=== PATIENT | female | born 1935 | race Caucasian/White ===

== ENCOUNTER 2016-05-05 00:22 | Inpatient (IN) | payer OTHER ==
[2016-05-05] VITALS (7 sets, daily range): BP systolic 97–153; BP diastolic 60–90; PULSE 54–114; TEMP 36.2–36.7; O2SAT 92–96; Ht 139.7 cm; Wt 61.0 kg
[~2016-05-05] VITALS: Ht 139.7 cm; Wt 61.0 kg
[~2016-05-05 00:22] MED LIST: ACET-1256 PO; AMLO5TAB2 PO; CALC1CHW PO; CLC100X PO; LIDO16CR TOP; LINICRE TOP; LSN20 PO; METO1TAB66 PO; MULTCHW; NUTR-977 PO; PANT40TA PO; ULT50X PO
[2016-05-05] MEDS ORDERED: METOPROLOL TARTRATE 1 MG/ML VIAL IV STA ×2 (00:30→01:06)
--- NOTE | 2016-05-05 00:36 | EMERGENCY ROOM VISIT NOTE ---
History Report prepared by Lebron: Penny Wilson Under the Supervision of: Dr. Miguel Viveros M.D. First contact with patient: 00:25 Chief Complaint: CARDIAC ASSESSMENT Stated Complaint: CARDIAC ASSESSMENT/DIZZINESS History of Present Illness The patient is an 81 year old female who presents to the Emergency Room with complaints of persistent atrial fibrillation that began prior to arrival. The patient states that she has a history of atrial fibrillation, noting that the last time she was in atrial fibrillation was 3 1/2 years ago. She notes that this evening she felt herself go into atrial fibrillation. The patient associates intermittent chest pain with her symptoms today. She notes that she is on Metoprolol daily, but denies being on any blood thinners or aspirin daily. The patient states that she takes Tylenol daily and denies any new medications. She additionally notes that she has intermittently had swelling in her feet. The patient denies any recent hospitalizations or recent falls. Source of History: patient Onset: prior to arrival Position: other (global) Quality: other (atrial fibrillation) Timing: other (persistent) Associated Symptoms: + chest pain (intermittent) Note: Associated Symptoms intermittent swelling in feet. Review of Systems See HPI for pertinent positives & negatives. A total of 10 systems reviewed and were otherwise negative. Past Medical & Surgical Medical Problems: (1) Ambulatory dysfunction (2) Autoimmune deficiency (3) Benign hypertension (4) C. 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 Family History No pertinent family history Social History Smoking Status: Never Smoker Alcohol Use: none Drug Use: none Marital Status: Housing Status: half-way Occupation Status: retired Current/Historical Medications Scheduled Acetaminophen (Tylenol), 500 MG PO TID Amlodipine Besylate (Norvasc), 10 MG PO DAILY Calcium Carbonate-Vitamin D (Caltrate 600+D), 1 TAB PO BID Enteral Nutrition Formula (Ensure Plus Vanilla), 1 CAN PO UD Lisinopril (Lisinopril), 20 MG PO BID Menthol-Methyl Salicylate (Gloria (Bengay Greaseless), 1 APPLN TOP UD Metoprolol Succinate (Toprol Xl), 50 MG PO HS Multiple Vitamins W/ Minerals (Therems M), 1 TAB PO DAILY Pantoprazole (Protonix), 40 MG PO QPM Scheduled PRN Acetaminophen (Tylenol), 500 MG PO Q4H PRN for Pain Bisacodyl (Dulcolax), 1 SUPP [place] DAILY PRN for NO BOWEL MOVEMENT X 2 DAYS Docusate Sodium (Colace), 100 MG PO BID PRN for Constipation Lactulose (Chronulac), 30 ML PO DAILY PRN for NO BOWEL MOVEMENT X 1 DAY. Menthol (Topical Analgesic) (Bengay Ultra Strength), 1 PATCH TD BID PRN for Pain Tramadol HCl (Tramadol HCl), 50 MG PO TID PRN for Pain Allergies Coded Allergies: Sulfa Antibiotics (Verified Allergy, Mild, RASH, 07/09/15) Kiwi Extract (Verified Allergy, Unknown, HIVES, 06/19/15) Latex (Verified Allergy, Unknown, RASH, 06/19/15) Celecoxib (Verified Adverse Reaction, Mild, GI UPSET, 06/19/15) Rofecoxib (Verified Adverse Reaction, Mild, GI UPSET, 06/19/15) Alendronate (Verified Adverse Reaction, Unknown, GI UPSET, 06/19/15) Codeine (Verified Adverse Reaction, Unknown, GI UPSET, 07/09/15) Meperidine (Verified Adverse Reaction, Unknown, GI UPSET, 07/09/15) Morphine (Verified Adverse Reaction, Unknown, GI UPSET, 07/09/15) Physical Exam Vital Signs Date Time Temp Pulse Resp B/P Pulse Ox O2 Delivery O2 Flow Rate FiO2 05/05/16 02:07 100 20 128/82 95 Room Air 05/05/16 01:19 93 20 133/81 94 Room Air 05/05/16 01:18 93 133/81 05/05/16 00:45 94 05/05/16 00:36 120 151/94 05/05/16 00:30 95 Room Air 05/05/16 00:23 36.5 129 24 151/94 95 Room Air Physical Exam GENERAL: Patient is elderly appearing and in minimal distress. HEENT: No acute trauma, normocephalic atraumatic, mucous membranes moist, no nasal congestion, no scleral icterus. NECK: No stridor, no adenopathy, no meningismus, trachea is midline. LUNGS: No dyspnea. Clear to auscultation and equal bilaterally. No wheeze, no rhonchi. HEART: Tachycardic rate and irregular rhythm. No murmurs, rubs, gallops appreciated. ABDOMEN: Soft, nontender, bowel sounds positive, no masses appreciated, no peritonitis. BACK: No midline tenderness, no CVA tenderness EXTREMITIES: Mild edema bilateral feet and ankles. Extensive reconstruction of right shoulder. Clawing of right hand. Normal motion all extremities, no cyanosis. NEUROLOGIC: Alert and oriented, no acute motor or sensory deficits, no focal weakness, cranial nerves grossly intact. SKIN: No rash, no jaundice, no diaphoresis. Medical Decision & Procedures ER Provider Diagnostic Interpretation: 1 view chest x-ray: No infiltrate no effusion. Large heart increased in size from previous chest x-ray Laboratory Results 05/05/16 00:30 Red Blood Count 4.57, Mean Corpuscular Volume 88.6, Mean Corpuscular Hemoglobin 30.4, Mean Corpuscular Hemoglobin Concent 34.3, Mean Platelet Volume 10.1, Neutrophils (%) (Auto) 52.8, Lymphocytes (%) (Auto) 33.2, Monocytes (%) (Auto) 12.2, Eosinophils (%) (Auto) 1.1, Basophils (%) (Auto) 0.6, Neutrophils # (Auto ) 4.13, Lymphocytes # (Auto) 2.60, Monocytes # (Auto) 0.96, Eosinophils # (Auto ) 0.09, Basophils # (Auto) 0.05 05/05/16 00:30 Test 05/05/16 00:30 White Blood Count 7.84 K/uL (4.8-10.8) Red Blood Count 4.57 M/uL (4.2-5.4) Hemoglobin 13.9 g/dL (12.0-16.0) Hematocrit 40.5 % (37-47) Mean Corpuscular Volume 88.6 fL (80-100) Mean Corpuscular Hemoglobin 30.4 pg (25-34) Mean Corpuscular Hemoglobin Concent 34.3 g/dl (32-36) Platelet Count 234 K/uL (130-400) Mean Platelet Volume 10.1 fL (7.4-10.4) Neutrophils (%) (Auto) 52.8 % Lymphocytes (%) (Auto) 33.2 % Monocytes (%) (Auto) 12.2 % Eosinophils (%) (Auto) 1.1 % Basophils (%) (Auto) 0.6 % Neutrophils # (Auto) 4.13 K/uL (1.4-6.5) Lymphocytes # (Auto) 2.60 K/uL (1.2-3.4) Monocytes # (Auto) 0.96 K/uL (0.11-0.59) Eosinophils # (Auto) 0.09 K/uL (0-0.5) Basophils # (Auto) 0.05 K/uL (0-0.2) RDW Standard Deviation 41.0 fL (36.4-46.3) RDW Coefficient of Variation 12.8 % (11.5-14.5) Immature Granulocyte % (Auto) 0.1 % Immature Granulocyte # (Auto) 0.01 K/uL (0.00-0.02) Prothrombin Time 10.2 SECONDS (9.0-12.0) Prothromb Time International Ratio 1.0 (0.9-1.1) Activated Partial Thromboplast Time 27.5 SECONDS (21.0-31.0) Partial Thromboplastin Ratio 1.1 Anion Gap 11.0 mmol/L (3-11) Est Creatinine Clear Calc Drug Dose 32.2 ml/min Estimated GFR () 63.4 Estimated GFR (Non- 54.7 BUN/Creatinine Ratio 17.8 (10-20) Calcium Level 9.7 mg/dl (8.5-10.1) Magnesium Level 2.0 mg/dl (1.8-2.4) Thyroid Stimulating Hormone (TSH) 1.660 uIu/ml (0.300-4.500) Laboratory results as reviewed by me. Medications Administered Medications (Trade) Dose Ordered Sig/Jack Route Start Time Stop Time Status Last Admin Dose Admin Metoprolol Tartrate (Lopressor Iv) 5 mg NOW STAT IV 05/05/16 00:30 05/05/16 00:31 DC 05/05/16 00:36 5 MG Metoprolol Tartrate (Lopressor Iv) 5 mg NOW STAT IV 05/05/16 01:06 05/05/16 01:07 DC 05/05/16 01:18 5 MG Aspirin (Aspirin Chew) 324 mg NOW STAT PO 05/05/16 01:30 05/05/16 01:31 DC 05/05/16 01:43 324 MG ECG Indication: other (atrial fibrillation) Rate (beats per minute): 124 Rhythm: atrial fibrillation (with RVR) Findings: RBBB, ST depression (Lateral) Change: Repeat EKG: Atrial fibrillation 96, right bundle branch block, lateral ST depressions. Similar to previous. ED Course 0025: The patient was evaluated in room A2. A complete history and physical exam was performed. 0030: Ordered Lopressor IV 5 mg IV. 0047: I reevaluated the patient and her heart rate has decreased. 0106: Ordered Lopressor IV 5 mg IV. 0125: I reevaluated the patient and she is mildly tachycardic, but in no distress. I discussed all the exam findings with her and I discussed the treatment plan. She verbalized complete understanding and agreement. She will be evaluated for further treatment. 0128: I discussed the patient's case with PANCHITO Louise. He is going to evaluate the patient for further treatment. 0130: Ordered Aspirin 324 mg PO. Medical Decision Differential: Cardiac Ischemia (STEMI, NSTEMI, Unstable Angina, etc), Aortic Dissection, Arrhythmia, Pulmonary Embolism, Pneumonia, Pneumothorax, MSK, Infectious, Pericarditis/Myocarditis, Esophageal Rupture, Gastrointestinal, amongst other pathologies entertained. 81 yr old female with remote history of Afib though appears she remains usually in NSR. Arrives after episode of CP found to be in afib RVR. Given 2 rounds of Lopressor IV prior to her HR normalizing though remains in afib. Lateral ST depressions improving with rate control. She is stable, no further distress and looks well. She will need to come in for further work-up and management of her findings and cp. She was given dose ASA for heart protection though given uncertainty of afib approach will defer further anticoagulation to admission team. No clear evidence of ACS, but with normal Trop and no STEMI will hold on any heparin from that standpoint. No shob nor evidence of PE appreciated. She does not have pain consistent with dissection. No evidence of pneumonia/ infection nor other acute process. Consults Time Called: 0125 Consulting Physician: PANCHITO Louise Returned Call: [phone] I discussed the patient's case with PANCHITO Louise. He is going to evaluate the patient for further treatment. Impression Primary Impression: Atrial fibrillation with rapid ventricular response Additional Impression: Substernal chest pain Critical Care I have personally spent greater than 35 minutes of critical care time in the direct management of this patient. This was a life/limb threatening event. This includes time spent evaluating patient, direct bedside care, chart review, placing orders, interpretation of diagnostic studies, discussion with consultants, patient, and family members, as well as other required patient management activities. This 35 minutes is in excess of all separately billable procedures. Scribe Attestation The scribe's documentation has been prepared under my direction and personally reviewed by me in its entirety. I confirm that the note above accurately reflects all work, treatment, procedures, and medical decision making performed by me. Departure Information Dispostion Being Evaluated By Hospitalist Zechariah Scott M.D. (PCP) Problem Qualifiers
[2016-05-05 00:41] LABS: BASO % 0.6 %; BASO ABS # 0.05 K/uL (0-0.2); COMPLETE YES; EOS % 1.1 %; HEMATOCRIT 40.5 % (37-47); IG% 0.1 %; LYMPH % 33.2 %; MEAN CELL VOLUME 88.6 fL (80-100); MEAN CORPUSCULAR HEMOGLOBIN 30.4 pg (25-34); MEAN CORPUSCULAR HGB CONC 34.3 g/dl (32-36); MEAN PLATELET VOLUME 10.1 fL (7.4-10.4); MONO % 12.2 %; NEUT % 52.8 %; PLATELET COUNT 234 K/uL (130-400); RED BLOOD COUNT 4.57 M/uL (4.2-5.4); WHITE BLOOD COUNT 7.84 K/uL (4.8-10.8)
[2016-05-05 00:53] LABS: PARTIAL THROMBOPLASTIN RATIO 1.1; PROTHROMBIN TIME (PATIENT) 10.2 SECONDS (9.0-12.0)
[2016-05-05 00:58] LABS: BLOOD UREA NITROGEN 17 mg/dl (7-18); BUN/CREATININE RATIO 17.8 (10-20); CALCIUM 9.7 mg/dl (8.5-10.1); CARBON DIOXIDE 26 mmol/L (21-32); CHLORIDE 103 mmol/L (98-107); CREATININE 0.96 mg/dl (0.60-1.20); GLUCOSE 121 mg/dl (70-99); POTASSIUM 3.9 mmol/L (3.5-5.1); SODIUM 140 mmol/L (136-145)
[2016-05-05 01:08] LABS: CKMB/CK RATIO 3.3 (0-3.0)
[2016-05-05] MEDS ORDERED: ASPIRIN 324 MG CHEW PO STA (01:30)
[2016-05-05] MEDS ORDERED: MULTTAB63 PO (01:50)
[2016-05-05] MEDS ORDERED: LACT10SO17 PO (01:59)
[2016-05-05] MEDS ORDERED: BISA10SU38 PR (02:01)
[2016-05-05] MEDS ORDERED: ACET-1256 PO (02:03)
[2016-05-05] MEDS ORDERED: [UNRECOGNIZED DRUG - CODE] TD (02:07)
[2016-05-05] MEDS ORDERED: METOPROLOL TARTRATE 1 MG/ML VIAL IV PRN (03:00)
[2016-05-05] MEDS ORDERED: ZOLPIDEM TARTRATE 5 MG TAB PO PRN (03:00)
[2016-05-05] MEDS ORDERED: ACETAMINOPHEN 325 MG TAB PO PRN (03:00)
[2016-05-05] MEDS ORDERED: BISACODYL 10 MG SUPP PR PRN (03:00)
[2016-05-05] MEDS ORDERED: TROLAMINE SALICYLATE 10% CRM 255 APPLN/85 GM TUBE EXT PRN (03:00)
[2016-05-05] MEDS ORDERED: LACTULOSE SYRUP 20 GM/30 ML UDC PO PRN (03:00)
[2016-05-05] MEDS ORDERED: ONDANSETRON INJ 2 MG/ML 2 ML VIAL IV PRN (03:00)
[2016-05-05] MEDS ORDERED: DOCUSATE SODIUM 100 MG CAP PO PRN (03:00)
[2016-05-05] MEDS ORDERED: NSS + 20MEQ KCL 1000ML 1,000 ML IV SCH (04:00)
[2016-05-05] MEDS ORDERED: BOOST PLUS VANILLA PO PRN ×2 (04:00)
[2016-05-05 04:03] LABS: CKMB/CK RATIO 3.2 (0-3.0)
--- NOTE | 2016-05-05 06:40 | History and Physical ---
History & Physical Date & Time of Service: May 05, 2016 at 06:28 Chief Complaint: Atrial Fibrillation With Rapid Ventricular Respons Primary Care Physician: Zechariah Wallace M.D. History of Present Illness Source: patient The patient is an 81-year-old female who presents emergency department with complaint of palpitations that began prior to arrival. She reports that she has a history of atrial fibrillation, with her last episode approximately 3 1/2 years ago. She reports this evening that she was at rest,and felt her heart begin to race, along with intermittent chest pain. She is not on any blood thinners or aspirin on a regular basis. She denies any syncopal or presyncopal sensations. Past Medical/Surgical History Medical Problems: (1) Autoimmune deficiency Status: Chronic (2) Benign hypertension Status: Chronic (3) C. 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 Status: Resolved Family History No pertinent family history Social History Smoking Status: Never Smoker Drug Use: none Marital Status: Housing status: assisted living Occupational Status: retired Multi-Drug Resistant Organisms History of MDRO: No Allergies Coded Allergies: Sulfa Antibiotics (Verified Allergy, Mild, RASH, 07/09/15) Kiwi Extract (Verified Allergy, Unknown, HIVES, 06/19/15) Latex (Verified Allergy, Unknown, RASH, 06/19/15) Celecoxib (Verified Adverse Reaction, Mild, GI UPSET, 06/19/15) Rofecoxib (Verified Adverse Reaction, Mild, GI UPSET, 06/19/15) Alendronate (Verified Adverse Reaction, Unknown, GI UPSET, 06/19/15) Codeine (Verified Adverse Reaction, Unknown, GI UPSET, 07/09/15) Meperidine (Verified Adverse Reaction, Unknown, GI UPSET, 07/09/15) Morphine (Verified Adverse Reaction, Unknown, GI UPSET, 07/09/15) Home Medications Scheduled Acetaminophen (Tylenol), 500 MG PO TID Amlodipine Besylate (Norvasc), 10 MG PO DAILY Calcium Carbonate-Vitamin D (Caltrate 600+D), 1 TAB PO BID Enteral Nutrition Formula (Ensure Plus Vanilla), 1 CAN PO UD Lisinopril (Lisinopril), 20 MG PO BID Menthol-Methyl Salicylate (Gloria (Bengay Greaseless), 1 APPLN TOP UD Metoprolol Succinate (Toprol Xl), 50 MG PO HS Multiple Vitamins W/ Minerals (Therems M), 1 TAB PO DAILY Pantoprazole (Protonix), 40 MG PO QPM Scheduled PRN Acetaminophen (Tylenol), 500 MG PO Q4H PRN for Pain Bisacodyl (Dulcolax), 1 SUPP [place] DAILY PRN for NO BOWEL MOVEMENT X 2 DAYS Docusate Sodium (Colace), 100 MG PO BID PRN for Constipation Lactulose (Chronulac), 30 ML PO DAILY PRN for NO BOWEL MOVEMENT X 1 DAY. Menthol (Topical Analgesic) (Bengay Ultra Strength), 1 PATCH TD BID PRN for Pain Tramadol HCl (Tramadol HCl), 50 MG PO TID PRN for Pain Review of Systems The patient denies cough, vision change, hearing change, sore throat, fevers, chills, sweats, weight change, fatigue, nausea, vomiting, abdominal pain, pelvic pain, blood in urine or stool, dysuria, urinary frequency or urgency, headache, memory loss, rash, abnormal bruising or bleeding, focal or generalized weakness, numbness or tingling in arms or legs, arthralgias or myalgias, back or neck pain, night sweats, or allergy symptoms. The review of systems is otherwise negative other than for that already noted above, and at least 10 systems have been reviewed. Physical Exam Vital Signs Date Time Temp Pulse Resp B/P Pulse Ox O2 Delivery O2 Flow Rate FiO2 05/05/16 03:40 36.2 110 20 153/90 92 Room Air 05/05/16 03:07 87 20 113/69 95 Room Air 05/05/16 02:07 100 20 128/82 95 Room Air 05/05/16 01:19 93 20 133/81 94 Room Air 05/05/16 01:18 93 133/81 05/05/16 00:45 94 05/05/16 00:36 120 151/94 05/05/16 00:30 95 Room Air 05/05/16 00:23 36.5 129 24 151/94 95 Room Air The patient is awake, well-developed and adequately nourished, alert and oriented 3, normocephalic and atraumatic, lying in bed and in no acute distress. HEENT--PERRL,, mucous membranes and oropharynx dry. Neck--supple, no JVD or bruits, thyroid normal, trachea midline, no adenopathy. Heart--normal S1 and S2, no extra beats, no murmurs, rubs or gallops. Lungs--clear bilaterally. no respiratory distress, no accessory muscle use. Abdomen--normal bowel sounds and soft, nontender and nondistended, no hernias or masses, no organomegaly. Extremities--no cyanosis, clubbing or edema. There are good distal pulses b/l. Dermatologic--normal skin turgor, normal color, warm and dry, no abnormal lymph nodes, no rash. Neurologic--cranial nerves II through XII grossly intact, motor and sensory examination normal. Psychiatric--normal affect. Diagnostics Laboratory Results Results Past 24 Hours Test 05/05/16 00:30 05/05/16 03:30 Range/Units White Blood Count 7.84 4.8-10.8 K/uL Red Blood Count 4.57 4.2-5.4 M/uL Hemoglobin 13.9 12.0-16.0 g/dL Hematocrit 40.5 37-47 % Mean Corpuscular Volume 88.6 80-100 fL Mean Corpuscular Hemoglobin 30.4 25-34 pg Mean Corpuscular Hemoglobin Concent 34.3 32-36 g/dl Platelet Count 234 130-400 K/uL Mean Platelet Volume 10.1 7.4-10.4 fL Neutrophils (%) (Auto) 52.8 % Lymphocytes (%) (Auto) 33.2 % Monocytes (%) (Auto) 12.2 % Eosinophils (%) (Auto) 1.1 % Basophils (%) (Auto) 0.6 % Neutrophils # (Auto) 4.13 1.4-6.5 K/uL Lymphocytes # (Auto) 2.60 1.2-3.4 K/uL Monocytes # (Auto) 0.96 0.11-0.59 K/uL Eosinophils # (Auto) 0.09 0-0.5 K/uL Basophils # (Auto) 0.05 0-0.2 K/uL RDW Standard Deviation 41.0 36.4-46.3 fL RDW Coefficient of Variation 12.8 11.5-14.5 % Immature Granulocyte % (Auto) 0.1 % Immature Granulocyte # (Auto) 0.01 0.00-0.02 K/uL Prothrombin Time 10.2 9.0-12.0 SECONDS Prothromb Time International Ratio 1.0 0.9-1.1 Activated Partial Thromboplast Time 27.5 21.0-31.0 SECONDS Partial Thromboplastin Ratio 1.1 Sodium Level 140 136-145 mmol/L Potassium Level 3.9 3.5-5.1 mmol/L Chloride Level 103 98-107 mmol/L Carbon Dioxide Level 26 21-32 mmol/L Anion Gap 11.0 3-11 mmol/L Blood Urea Nitrogen 17 7-18 mg/dl Creatinine 0.96 0.60-1.20 mg/dl Est Creatinine Clear Calc Drug Dose 32.2 ml/min Estimated GFR () 63.4 Estimated GFR (Non- 54.7 BUN/Creatinine Ratio 17.8 10-20 Random Glucose 121 70-99 mg/dl Calcium Level 9.7 8.5-10.1 mg/dl Magnesium Level 2.0 1.8-2.4 mg/dl Total Creatine Kinase 48 44 26-192 U/L Creatine Kinase MB 1.6 1.4 0.5-3.6 ng/ml Creatine Kinase MB Ratio 3.3 3.2 0-3.0 Troponin I < 0.015 < 0.015 0-0.045 ng/ml Thyroid Stimulating Hormone (TSH) 1.660 0.300-4.500 uIu/ml EKG EKG #1 has a rate of 124, with atrial fibrillation with RVR , versus sinus tachycardia with right bundle branch block with aberrant conduction. EKG #2 has a rate of 96 with similar differential. Impression Assessment and Plan Palpitations with A. fib with RVR versus sinus tach with right bundle branch block and aberrant conduction--the patient will be admitted to the telemetry unit, for serial cardiac enzymes, cardiac rhythm monitoring, and a 2-D echocardiogram with Dopplers. We'll consult cardiology. Will hold on anticoagulation at this time. Will continue metoprolol succinate 50 mg by mouth at bedtime, lisinopril 20 mg by mouth twice a day and amlodipine 10 mg by mouth daily. Lopressor 5 mg IV every 4 hours when necessary heart rate greater than 110. [address] on normal saline with potassium chloride 20 mEq at 100 ML 's per hour. GERD--continue pantoprazole 40 mg by mouth every day. Arthritis pain--continue tramadol 25 mg by mouth every 6 hours when necessary. Level of Care Telemetry Advanced Directives Existing Advance Directive: No Existing Living Will: Yes Existing Power of Decorator Lighting Fixtures: Yes Resuscitation Status FULL RESUSCITATION VTE Prophylaxis VTE Risk Assessment Done? Y/N: Yes Risk Level: Moderate Given or contraindicated: SCD's
[2016-05-05] MEDS ORDERED: PERFLUTREN LIPID MICROSPHERE (DEFINITY) IV ONE (07:48)
--- NOTE | 2016-05-05 07:57 | DIAGNOSTIC IMAGING REPORT ---
CHEST ONE VIEW PORTABLE CLINICAL HISTORY: Chest pain. COMPARISON STUDY: Chest radiograph and chest CT July 09, 2015. FINDINGS: A right shoulder arthroplasty is partially imaged. There is no pneumothorax. Hazy left basilar opacity is unchanged and likely reflects atelectasis or epicardial fat pad. Cardiomediastinal silhouette is stable. There is no evidence of pulmonary edema. Scoliosis is again noted. IMPRESSION: No acute findings. No change in appearance of the chest. Electronically signed by: Chester Doyle M.D. 05/05/2016 7:55 AM Dictated Date/Time: 05/05/2016 7:54 AM
[2016-05-05] MEDS ORDERED: AMLODIPINE BESYLATE 5 MG TAB PO SCH (09:00)
[2016-05-05] MEDS: CALCIUM 600MG + VIT D 400 IU TAB PO SCH ×2 (09:05→21:04)
[2016-05-05] MEDS: CEROVITE ADV FORMULA TAB PO SCH (09:05)
[2016-05-05] MEDS: ACETAMINOPHEN 500 MG TAB PO SCH ×3 (09:05→19:29)
[2016-05-05] MEDS: LISINOPRIL 20 MG TAB PO SCH ×2 (09:05→21:04)
[2016-05-05] MEDS ORDERED: METOPROLOL SUCC 50MG EXT REL TAB PO STA (09:07)
--- NOTE | 2016-05-05 10:54 | Medical Student: [facility] ---
Med Student Progress Note Date of Service May 05, 2016. Subjective Pt evaluation today including: conversation w/ patient, physical exam, chart review, lab review, review of studies Pain: none at rest PO Intake: tolerates po diet Voiding: no voiding problems patient was admitting last night during an attack of afib. she was experiencing racing heartbeat, she felt weak, had swelling in her legs, and was having difficulty taking deep breaths. She reports that she is feeling better now, but says she has had several episodes of elevated heart rate since being admitted. she does not feel out of breath anymore and feels that the swelling in her legs has gone down. denies chest pain, sweating, nausea, vomiting. she endorse some mild constipation with urge to move her bowels but inability to do so. she occasionally takes colace at the group home she lives at when she has difficulty moving her bowels. her only other complaint is tiredness from not being able to sleep. Review of Systems Constitutional: No chills, No fever ENT: No hearing loss Respiratory: + problem reported (reports small lung nodules discovered with pulmonology in [place]), + wheezing, No cough Cardiac: No PND, No chest pain, No orthopnea Female : No dysuria, No urinary frequency Objective Vital Signs Date Time Temp Pulse Resp B/P Pulse Ox O2 Delivery O2 Flow Rate FiO2 05/05/16 08:07 36.4 114 22 152/75 96 Room Air 05/05/16 08:06 96 Room Air 05/05/16 03:40 36.2 110 20 153/90 92 Room Air 05/05/16 03:07 87 20 113/69 95 Room Air 05/05/16 02:07 100 20 128/82 95 Room Air 05/05/16 01:19 93 20 133/81 94 Room Air 05/05/16 01:18 93 133/81 05/05/16 00:45 94 05/05/16 00:36 120 151/94 05/05/16 00:30 95 Room Air 05/05/16 00:23 36.5 129 24 151/94 95 Room Air Physical Exam General Appearance: WD/WN, no apparent distress Eyes: bilateral eyes EOMI, bilateral eyes PERRL, bilateral eyes normal inspection ENT: hearing grossly normal, pharynx normal Neck: supple, no JVD Respiratory/Chest: chest non-tender, lungs clear, normal breath sounds Cardiovascular: no edema, no JVD, no murmur, + irregularly irregular Abdomen: normal bowel sounds, soft, + tenderness (to deep palpation of RUQ) Extremities: non-tender, + swelling (medial ankle swelling bilaterally) Neurologic/Psychiatric: alert, normal mood/affect, oriented x 3 Skin: normal color, warm/dry, no rash Laboratory Results Last 24 Hours Test 05/05/16 00:30 05/05/16 03:30 White Blood Count 7.84 K/uL Red Blood Count 4.57 M/uL Hemoglobin 13.9 g/dL Hematocrit 40.5 % Mean Corpuscular Volume 88.6 fL Mean Corpuscular Hemoglobin 30.4 pg Mean Corpuscular Hemoglobin Concent 34.3 g/dl Platelet Count 234 K/uL Mean Platelet Volume 10.1 fL Neutrophils (%) (Auto) 52.8 % Lymphocytes (%) (Auto) 33.2 % Monocytes (%) (Auto) 12.2 % Eosinophils (%) (Auto) 1.1 % Basophils (%) (Auto) 0.6 % Neutrophils # (Auto) 4.13 K/uL Lymphocytes # (Auto) 2.60 K/uL Monocytes # (Auto) 0.96 K/uL Eosinophils # (Auto) 0.09 K/uL Basophils # (Auto) 0.05 K/uL RDW Standard Deviation 41.0 fL RDW Coefficient of Variation 12.8 % Immature Granulocyte % (Auto) 0.1 % Immature Granulocyte # (Auto) 0.01 K/uL Prothrombin Time 10.2 SECONDS Prothromb Time International Ratio 1.0 Activated Partial Thromboplast Time 27.5 SECONDS Partial Thromboplastin Ratio 1.1 Sodium Level 140 mmol/L Potassium Level 3.9 mmol/L Chloride Level 103 mmol/L Carbon Dioxide Level 26 mmol/L Anion Gap 11.0 mmol/L Blood Urea Nitrogen 17 mg/dl Creatinine 0.96 mg/dl Est Creatinine Clear Calc Drug Dose 32.2 ml/min Estimated GFR () 63.4 Estimated GFR (Non- 54.7 BUN/Creatinine Ratio 17.8 Random Glucose 121 mg/dl Calcium Level 9.7 mg/dl Magnesium Level 2.0 mg/dl Total Creatine Kinase 48 U/L 44 U/L Creatine Kinase MB 1.6 ng/ml 1.4 ng/ml Creatine Kinase MB Ratio 3.3 3.2 Troponin I < 0.015 ng/ml < 0.015 ng/ml Thyroid Stimulating Hormone (TSH) 1.660 uIu/ml Medications Current Inpatient Medications Medications (Trade) Dose Ordered Sig/Jack Route Start Time Stop Time Status Last Admin Dose Admin Zolpidem Tartrate (Ambien Tab) 5 mg HSZ PRN PO 05/05/16 03:00 06/04/16 02:59 Acetaminophen (Tylenol Tab) 500 mg TID PO 05/05/16 09:00 06/04/16 08:59 05/05/16 09:05 500 MG Amlodipine Besylate (Norvasc Tab) 10 mg DAILY PO 05/05/16 09:00 06/04/16 08:59 05/05/16 09:05 10 MG Bisacodyl (Dulcolax Supp) 10 mg DAILY PRN ND 05/05/16 03:00 06/04/16 02:59 Docusate Sodium (coLACE CAP) 100 mg BID PRN PO 05/05/16 03:00 06/04/16 02:59 Enteral Nutritional Formula (Boost Plus Vanilla) 1 can PRN PRN PO 05/05/16 04:00 06/04/16 03:59 Lactulose (Chronulac Syrup) 20 gm DAILY PRN PO 05/05/16 03:00 06/04/16 02:59 Lisinopril (Zestril Tab) 20 mg BID PO 05/05/16 09:00 06/04/16 08:59 05/05/16 09:05 20 MG Multivitamins/ Minerals (Multivitamin W/ Minerals Tab) 1 tab DAILY PO 05/05/16 09:00 06/04/16 08:59 05/05/16 09:05 1 TAB Pantoprazole Sodium (Protonix Tab) 40 mg QPM PO 05/05/16 21:00 06/04/16 20:59 Tramadol HCl (Ultram Tab) 50 mg TID PRN PO 05/05/16 03:00 06/04/16 02:59 Miscellaneous Information (Order Awaiting Action) 1 ea QS N/A 05/05/16 08:00 06/04/16 07:59 Trolamine Salicylate (Myoflex Cream) 1 appln PRN PRN EXT 05/05/16 03:00 06/04/16 02:59 Calcium/Vitamin D (Caltrate Plus Tab) 1 tab BID PO 05/05/16 09:00 06/04/16 08:59 05/05/16 09:05 1 TAB Ondansetron HCl (Zofran Inj) 4 mg Q6H PRN IV 05/05/16 03:00 06/04/16 02:59 Metoprolol Tartrate (Lopressor Iv) 5 mg Q4 PRN IV 05/05/16 03:00 06/04/16 02:59 Metoprolol Succinate (Toprol Xl Tab) 50 mg BID PO 05/05/16 21:00 06/04/16 20:59 Assessment and Plan Assessment and Plan: This is an 81 yo woman with a history of hypertension who presented with an episode of afib with rvr and accompanying weakness and chest pain ACS rule out: initial and f/u troponin I negative. ischemic process can be ruled out Afib with RVR: improving. - Increased metoprolol succinate to 50 mg BID from qhs - may give metoprolol tartrate 5 mg q4hrs prn for elevated/symptomatic heart rate - continue to monitor on tele for any concerning rhythm changes Right upper quadrant pain: unknown etiology - pain is not present at rest. following palpation the patient expressed bilaterally lower quadrant abdominal pain - gallbladder is surgically absent - no accompanying nausea, vomiting, diarrhea. some possible constipation - encourage bowel movement - if no resolution, consider RUQ ultrasound or abdominal CT to evaluate for possible hepatic/intestinal etiology Continued [facility] stay due to: abnormal vital signs Discharge planning: home
[2016-05-05] MEDS: TRAMADOL HCL 50 MG TAB PO PRN ×2 (11:13→15:11)
[2016-05-05 12:00] LABS: CKMB/CK RATIO 3.7 (0-3.0)
[2016-05-05] MEDS ORDERED: HEPARIN 25,000 UNIT/500ML D5W 500 ML IV PRN (13:15)
[2016-05-05] MEDS ORDERED: HEPARIN IV BOLUS 5,000 UNIT in SYRINGE 0 ML IV ONE (13:30)
--- NOTE | 2016-05-05 14:15 | ECHOCARDIOGRAM REPORT ---
*NOTICE TO RECEIVING [employer] This information is strictly Confidential and protected under [place] law. [place] law prohibits you from making any further disclosure of this information unless further disclosure is expressly permitted by the written consent of the person to whom it pertains or is authorized by law. A general authorization for the release of medical or other information is not sufficient for this purpose. Hospital accepts no responsibility if the information is made available to any other person, INCLUDING THE PATIENT. Interpretation Summary * Name: BRENDA DERAS Study Date: 05/05/2016 08:26 AM BP: 152/75 mmHg * Patient Location: C.2T\S\S229\S\2 HR: 114 * : 1935 (M/d/y) Gender: Female Height: 55 in * Age: 81 yrs Ethnicity: [place] Weight: 139 lb * Ordering Physician: Patel Coreas * Referring Physician: Self, Referred * Performed By: Penny Watts RDCS * * Reason For Study: AFIB, RBBB WITH ABBERANCY * BSA: 1.5 m2 * History: AFIB, RBBB WITH ABERRANCY * -- Conclusions -- * The left ventricle is hyperdynamic. * No regional wall motion abnormalities noted. * Ejection Fraction = >70 %. * There is mild concentric left ventricular hypertrophy. * There is mild tricuspid regurgitation. Procedure Details * A contrast injection of Definity was performed to improve assessment of LV function. * Contrast was injected into an intravenous site in the left arm. * One vial of Definity ultrasound contrast was diluted in normal saline to a total volume of 10 ml. A total of '2' ml of solution was administered during imaging. * Lot # [id number] of Definity utilized for procedure. * Expiration date MAR 09. * The attending nurse who injected the contrast agent was MARNI ESPINOZA RN. Left Ventricle * The left ventricle is normal in size. * There is mild concentric left ventricular hypertrophy. * Ejection Fraction = >70 %. * The left ventricle is hyperdynamic. * No regional wall motion abnormalities noted. Right Ventricle * The right ventricle is not well visualized. * The right ventricular systolic function is normal. Atria * The left atrial size is normal. * Right atrial size is normal. * There is no evidence of atrial septal defect, but resolution does not allow assessment for a patent foramen ovale. Mitral Valve * The mitral valve is grossly normal. * There is no mitral valve stenosis. * Significant mitral regurgitation is absent. Tricuspid Valve * The tricuspid valve is not well visualized, but is grossly normal. * There is mild tricuspid regurgitation. Aortic Valve * The aortic valve is tricuspid. The leaflet thickness if normal. There is no aortic stenosis, and no significant insufficiency. * The aortic valve opens well. * Aortic valve sclerosis mild, without significant aortic valvular stenosis. * No aortic regurgitation is present. Pulmonic Valve * The pulmonic valve is not well visualized. Great Vessels * The aortic root is normal size. * The pulmonary is not well visualized. Pericardium/Pleural * There is no pericardial effusion. Great Vessels * Normal inferior vena cava size and collapsability with sniff indicates a normal right atrial pressure of 3 mmHg MMode 2D Measurements and Calculations IVSd 1.4 cm IVSs 1.9 cm LVIDd 3.2 cm LVIDs 1.9 cm LVPWd 1.2 cm LVPWs 1.5 cm IVS/LVPW 1.1 FS 39.8 % EDV(Teich) 41.7 ml ESV(Teich) 11.8 ml EF(Teich) 71.7 % EDV(cubed) 33.5 ml ESV(cubed) 7.3 ml EF(cubed) 78.1 % % IVS thick 35.2 % % LVPW thick 21.9 % LV mass(C)d 135.7 grams LV mass(C)dI 90.4 grams/m\S\2 LV mass(C)s 116.6 grams LV mass(C)sI 77.7 grams/m\S\2 SV(Teich) 29.9 ml SI(Teich) 19.9 ml/m\S\2 SV(cubed) 26.1 ml SI(cubed) 17.4 ml/m\S\2 Ao root diam 2.9 cm Ao root area 6.4 cm\S\2 LA dimension 3.0 cm LA/Ao 1.0 LVAd ap4 23.6 cm\S\2 LVLd ap4 7.7 cm EDV(MOD-sp4) 60.6 ml EDV(sp4-el) 61.3 ml LVAs ap4 9.8 cm\S\2 LVLs ap4 5.4 cm ESV(MOD-sp4) 14.7 ml ESV(sp4-el) 15.0 ml EF(MOD-sp4) 75.8 % EF(sp4-el) 75.6 % LVAd ap2 17.5 cm\S\2 LVLd ap2 6.1 cm EDV(MOD-sp2) 39.3 ml EDV(sp2-el) 42.7 ml LVAs ap2 7.2 cm\S\2 LVLs ap2 5.1 cm ESV(MOD-sp2) 8.6 ml ESV(sp2-el) 8.6 ml EF(MOD-sp2) 78.3 % EF(sp2-el) 79.8 % LVLd %diff -26.36 % EDV(MOD-bp) 50.0 ml LVLs %diff -6.03 % ESV(MOD-bp) 11.5 ml EF(MOD-bp) 77.1 % SV(MOD-sp4) 45.9 ml SI(MOD-sp4) 30.6 ml/m\S\2 SV(MOD-sp2) 30.8 ml SI(MOD-sp2) 20.5 ml/m\S\2 SV(MOD-bp) 38.6 ml SI(MOD-bp) 25.7 ml/m\S\2 SV(sp4-el) 46.4 ml SI(sp4-el) 30.9 ml/m\S\2 SV(sp2-el) 34.1 ml SI(sp2-el) 22.7 ml/m\S\2 Doppler Measurements and Calculations MV E max andreas 83.0 cm/sec MV dec time 0.11 sec Ao V2 max 135.8 cm/sec Ao max PG 7.4 mmHg Ao max PG (full) 4.4 mmHg LV V1 max PG 3.0 mmHg LV V1 max 86.7 cm/sec TR max andreas 198.1 cm/sec
--- NOTE | 2016-05-05 14:28 | CARDIOLOGY CONSULTATION ---
DATE OF CONSULTATION: 05/05/2016 TIME: 12:50 p.m. CONSULTING PHYSICIAN: Dr. Coreas. REASON FOR CONSULTATION: Atrial fibrillation with rapid ventricular response. HISTORY OF PRESENT ILLNESS: Mrs. Delaney is a pleasant 81-year-old female with a history significant for paroxysmal atrial fibrillation, hypertension and autoimmune deficiency who presented to [facility] with palpitations and was found to be in atrial fibrillation with rapid ventricular response. While on the commode yesterday evening, she felt dizzy and had a near syncopal episode but she denies any actual syncope. She then developed some palpitations after she laid down in bed from the commode. The palpitations felt as though her heart was racing. This was approximately 1900 p.m. She then came to the Emergency Department for further evaluation. She was found to be in atrial fibrillation with rapid ventricular response with an initial pulse in the 120s. Initial ECG demonstrated a heart rate of 124 beats per minute with atrial fibrillation and a right bundle branch block. She was given intravenous metoprolol 5 mg IV on 2 separate occasions. Her heart rate improved overnight into the 80s-100s at times. She continues to have symptoms; however, no longer feels palpitations. Her symptom now is feeling tired and fatigued. She has had intermittent left chest discomfort beneath her left breast. This can last for 10-15 minutes at a time. It occurs intermittently at rest and in fact she had it during today's visit. There is no radiation of the pain. There is shortness of breath accompanied with the palpitations and chest discomfort. She typically walks with a cane or walker and has no dyspnea with exertion or chest pain while walking. She also admits however that she does not walk fast enough to cause dyspnea. She sleeps chronically with her head propped up due to breathing issues. She has chronic lower extremity edema and states that it has been stable. She has been eating and drinking her usual amounts of food and liquid. She drinks several water bottles a day. She did have diarrhea 3 or 4 days ago, but this has since resolved. She denies any melena, hematochezia, hematuria, or other bleeding recently. She did have some hematochezia in the past, nearly 1 year ago in the early 2016. She was evaluated by Dr. Delgado and had polyps removed. She has not had any bleeding since that time. She states that she was on Coumadin in the past several years ago but does not know the indication. She was diagnosed with atrial fibrillation a few years ago in [place], approximately 3-1/2 years ago. She apparently had a UTI and was significantly dehydrated. She spontaneously converted to sinus rhythm, according to her report. She has never had cardioversion performed. She denies TIA, stroke, diabetes, atherosclerotic vascular disease or heart failure. She does have a history of hypertension. REVIEW OF SYSTEMS: As above and also denies fevers. Other review of systems otherwise negative. PAST MEDICAL HISTORY: 1. Paroxysmal atrial fibrillation as noted above. 2. Autoimmune deficiency. 3. Hypertension. 4. History of C. diff. 5. Status post cholecystectomy. 6. Costochondritis. 7. Lumbar facet syndrome. 8. Osteoporosis. 9. Status post knee replacement. 10. Spinal stenosis. 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 12. Colonic polyps with GI bleeding prior to removal. HOME MEDICATIONS: Include amlodipine 10 mg daily, metoprolol succinate 50 mg at bedtime, lisinopril 20 mg b.i.d., Protonix 40 mg. INPATIENT MEDICATIONS: Include amlodipine 10 mg daily, metoprolol succinate 50 mg daily, lisinopril 20 mg p.o. b.i.d., Protonix 40 mg daily. ALLERGIES: SULFA DRUGS, LATEX, CELEBREX, ROFECOXIB, ALENDRONATE, CODEINE, MEPERIDINE AND MORPHINE. SOCIAL HISTORY: Denies tobacco, alcohol or drug abuse. She is a . She has 3 sons. Her son, Ankit Delaney, is her power of mass communications instructor, cell phone number is [phone]. She has several grandchildren and [facility]. She currently resides at [facility] in assisted living. FAMILY HISTORY: No known premature CAD. Her mother at the age of 70 from myocardial infarction. PHYSICAL EXAMINATION: VITAL SIGNS: Temperature 36.4 degrees, heart rate 114 beats per minute, respiration rate 22, blood pressure 152/75 mmHg, oxygen saturation 96% on room air, weight 90.4 kilograms. These were the most recent vitals when she was evaluated this morning at approximately 8:45 a.m. GENERAL: In no acute distress. She was alert and oriented. HEENT: Anicteric sclerae. NECK: No appreciable JVD. No bruits. Normal carotid upstrokes bilaterally. CARDIAC EXAM: PMI was nonpalpable. There was no ventricular heave, irregularly irregular, normal S1, S2. No audible murmurs, rubs or gallops. LUNGS: Clear to auscultation bilaterally without wheezes, rales or rhonchi. ABDOMEN: Soft, nontender, nondistended, normoactive bowel sounds, no bruits noted. EXTREMITIES: 1+ left lower extremity edema. 2+ right lower extremity edema. She states that this is chronic. No cyanosis. No palpable cords. 2+ radial pulses bilaterally. 2+ dorsalis pedis pulses bilaterally. PSYCHIATRIC: Affect appears appropriate. LABORATORY DATA: Sodium 140, potassium 3.9, BUN 17, creatinine 0.96. Troponin undetectable x3. TSH 1.66, magnesium 2. White blood cell count is 7.84, hemoglobin 13.9, platelets 234. INR 1. Chest x-ray image personally reviewed. No obvious infiltrate. Chronic left basilar opacity, unchanged according to radiology. No acute findings per radiology. Three ECGs were personally reviewed. Initial ECG demonstrated atrial fibrillation with rapid ventricular response with a heart rate of 124 beats per minute. Right bundle branch block with inferior T-wave inversion. Most recent ECG demonstrated atrial fibrillation at 95 beats per minute with right bundle branch block and similar T-wave findings. Prior echo report reviewed. Echo 07/09/2015 reported normal biventricular systolic function. No significant valvular abnormalities. Type 1 diastolic dysfunction. Telemetry personally reviewed. Atrial fibrillation. ASSESSMENT AND PLAN: 1. Paroxysmal atrial fibrillation with rapid ventricular response: She was asymptomatic on the onset when she was more tachycardic. She is asymptomatic now. We discussed the diagnosis in detail and treatment strategies. She was agreeable for rate control strategy. Metoprolol succinate increased to 50 mg twice daily. If necessary, this can be further titrated. Amlodipine can also be replaced with diltiazem if necessary. We also discussed stroke risk reduction. She has an elevated CHADS-VASc score. Recommend anticoagulation therapy. Heparin drip will be ordered. She is familiar with Coumadin. We also discussed newer agents. She will further determine this as hospital course progresses. Monitor for bleeding. Echocardiogram pending. 2. Hypertension: Blood pressure is elevated. We will hold amlodipine for now while increasing metoprolol. If blood pressure remains elevated and her heart rate needs further control, I would further titrate beta isabel. Continue PIETRO inhibitor. 3. Edema: She states that this is chronic and stable. Amlodipine could be contributing to her lower extremity edema. May be able to replace amlodipine for her antihypertensive regimen with metoprolol succinate, which should also help with her atrial fibrillation, heart rate control. 4. Chest pain: Chest pain is atypical. It occurs at rest. It may be related to her atrial fibrillation. Fortunately, her troponin levels have been unremarkable. Echocardiogram pending. She has not had any exertional chest discomfort in the past. If symptoms continue with adequate rate control or while in sinus rhythm, would consider ischemic evaluation. Monitor for now. 5. Disposition: Plan of care has been discussed with Dr. Welch of the hospitalist service. Also, at the request of the patient, her son Ankit Delaney was contacted via telephone. We discussed her presentation and treatment plan. Any questions were answered. Cardiology will be available over the next 3 days. I will be away from the hospital however. This was discussed with Dr. Welch. He will contact the on-call workplace rehabilitation officer for any questions or concerns. Hopefully, she spontaneously converts as she has done in the past. Upon discharge, we would be happy to follow her in the outpatient setting. Thank you for allowing me to participate in the care of Ms. Delaney. ALPHONSE
--- NOTE | 2016-05-05 17:29 | Progress Note ---
Progress Note seen in f/u from early AM admit d/w pt d/w cardiology d/w son at pt's request feeling better but still feeling some palpitations, discussed anticoagulation ( [id number]) and she's amenable - extensive discussion of risks/benefits of anticoagulation in general and of coumadin vs NOAC - she opts for NOAC afib - rate control w metoprolol, anticoag currently started by surgery w heparin - anticipate she'll likely opt for NOAC - will rediscuss and likely start tomorrow home once rate controlled at rest and with ambulation
[2016-05-05 19:56] LABS: CKMB/CK RATIO 3.4 (0-3.0)
[2016-05-05] MEDS ORDERED: PANTOprazole SOD 40 MG TAB PO SCH (21:00)
[2016-05-05] MEDS ORDERED: METOPROLOL SUCC 50MG EXT REL TAB PO SCH (21:00)
[2016-05-05] MEDS: METOPROLOL SUCC 50MG EXT REL TAB PO SCH (21:04)
[2016-05-06] MEDS ORDERED: RIVAROXABAN TAB 15 MG TAB PO SCH
[2016-05-06 03:20] VITALS: BP 131/69; PULSE 60; TEMP 36.5; O2SAT 96
[2016-05-06 06:29] LABS: BASO % 0.6 %; BASO ABS # 0.04 K/uL (0-0.2); COMPLETE YES; EOS % 1.5 %; HEMATOCRIT 36.8 % (37-47); IG% 0.1 %; LYMPH % 31.7 %; LYMPH ABS # 2.27 K/uL (1.2-3.4); MEAN CELL VOLUME 89.5 fL (80-100); MEAN CORPUSCULAR HEMOGLOBIN 30.2 pg (25-34); MEAN CORPUSCULAR HGB CONC 33.7 g/dl (32-36); MEAN PLATELET VOLUME 10.6 fL (7.4-10.4); MONO % 9.6 %; NEUT % 56.5 %; PLATELET COUNT 226 K/uL (130-400); RED BLOOD COUNT 4.11 M/uL (4.2-5.4); WHITE BLOOD COUNT 7.16 K/uL (4.8-10.8)
[2016-05-06 06:54] LABS: BUN/CREATININE RATIO 22.3 (10-20); CALCIUM 9.2 mg/dl (8.5-10.1); CREATININE 0.79 mg/dl (0.60-1.20); MAGNESIUM 1.8 mg/dl (1.8-2.4); PARTIAL THROMBOPLASTIN RATIO 3.1; POTASSIUM 3.9 mmol/L (3.5-5.1); PROTHROMBIN TIME (PATIENT) 11.1 SECONDS (9.0-12.0)
[2016-05-06] MEDS ORDERED: BOOST VANILLA PO SCH ×4 (07:30→09:00)
[2016-05-06 07:37] VITALS: BP 136/71; PULSE 61; TEMP 36.9; O2SAT 95
[2016-05-06] MEDS: ACETAMINOPHEN 500 MG TAB PO SCH (08:30)
[2016-05-06] MEDS: CALCIUM 600MG + VIT D 400 IU TAB PO SCH (08:30)
[2016-05-06] MEDS: METOPROLOL SUCC 50MG EXT REL TAB PO SCH (08:30)
[2016-05-06] MEDS: CEROVITE ADV FORMULA TAB PO SCH (08:30)
[2016-05-06] MEDS: LISINOPRIL 20 MG TAB PO SCH (08:31)
[2016-05-06] MEDS ORDERED: TPRSR50 PO (09:27)
[2016-05-06] MEDS ORDERED: XRL15 PO (09:27)
--- NOTE | 2016-05-06 09:34 | Discharge Instructions ---
Discharge Instructions Admission Reason for Admission: Atrial Fibrillation With Rapid Ventricular Respons Discharge Discharge Diagnosis / Problem: atrial fibrillation with racing heart - now controlled Discharge Goals Goal(s): Diagnostic testing, Therapeutic intervention Activity Recommendations Activity Limitations: resume your previous activity . Instructions / Follow-Up Instructions / Follow-Up your heart rates have improved (actually you've converted to a regular rhythm) so we'll continue the higher dosing of the metoprolol to keep things under better control - take the metoprolol 50mg in the morning and at night. you appear to be tolerating it well, but if you were to feel weak/lightheaded/dizzy/ lightheaded when standing up, then we'd need you to get looked at to make sure the higher dosing isn't making your pulse or blood pressure too low (right now it's not). -with atrial fibrillation, the top part of the heart quivers instead of squeezes , and that quivering basically can allow a "stagnant pond of blood" that can form clots - putting you at risk for stroke. to mitigate this risk, we've started you on a blood thinner- xarelto. based on your age and labs, it is a 15mg once a day pill. as we discussed, obviously on blood thinners you have a higher chance of bleeding, but the risk of stroke (and the risk of permanent consequences from a stroke) outweigh the risk of bleeding. if you do have bleeding, and it's something you can put pressure on (such as a nosebleed or if you cut yourself) - put pressure on it, then look at the clock. bleeding that responds to 10 minutes of pressure can be frustrating, but generally does not require you to come to the hospital. if it's bleeding that doesn't respond to 10 minutes of pressure (or it's bleeding you can't put pressure on - such as gastrointestinal bleeding) then you'd want to get to the hospital to get checked out. we'll want dr stevens to take a look at you next week to make sure your heart rates are still good, and that you're tolerating the changed medications well. Current Hospital Diet Patient's current hospital diet: AHA Diet (Heart Healthy) Discharge Diet Recommended Diet: AHA Diet (Heart Healthy) Pending Studies Studies pending at discharge: no Medical Emergencies . Who to Call and When: Medical Emergencies: If at any time you feel your situation is an emergency, please call 911 immediately. . Non-Emergent Contact Non-Emergency issues call your: Primary Care Provider, Training Associate . . "Provider Documentation" section prepared by Jordy Welch. VTE Core Measure Inpt VTE Proph given/why not?: Other Anticoagulation, SCD's
[2016-05-06 10:06] VITALS: BP 136/71; PULSE 61; TEMP 36.9; O2SAT 95
--- NOTE | 2016-05-06 11:58 | Discharge Summary ---
Discharge Summary Admission Date: May 05, 2016 at 02:57 Discharge Date: May 06, 2016 Discharge Disposition: Personal care Principal Diagnosis: afib w RVR Procedures: echo: Interpretation Summary * Name: BRENDA DERAS Study Date: 05/05/2016 08:26 AM BP: 152/75 mmHg * Patient Location: 2\S\S229\S\2 HR: 114 * : 1935 (M/d/yyyy) Gender: Female Height: 55 in * Age: 81 yrs Ethnicity: CA Weight: 139 lb * Ordering Physician: Patel Coreas * Referring Physician: Self, Referred * Performed By: Penny Watts RDCS * * Reason For Study: AFIB, RBBB WITH ABBERANCY * BSA: 1.5 m2 * History: AFIB, RBBB WITH ABERRANCY * -- Conclusions -- * The left ventricle is hyperdynamic. * No regional wall motion abnormalities noted. * Ejection Fraction = >70 %. * There is mild concentric left ventricular hypertrophy. * There is mild tricuspid regurgitation. Procedure Details * A contrast injection of Definity was performed to improve assessment of LV function. * Contrast was injected into an intravenous site in the left arm. * One vial of Definity ultrasound contrast was diluted in normal saline to a total volume of 10 ml. A total of '2' ml of solution was administered during imaging. * Lot # [id number] of Definity utilized for procedure. * Expiration date 1 MAR 09. * The attending nurse who injected the contrast agent was MARNI ESPINOZA RN. Left Ventricle * The left ventricle is normal in size. * There is mild concentric left ventricular hypertrophy. * Ejection Fraction = >70 %. * The left ventricle is hyperdynamic. * No regional wall motion abnormalities noted. Right Ventricle * The right ventricle is not well visualized. * The right ventricular systolic function is normal. Atria * The left atrial size is normal. * Right atrial size is normal. * There is no evidence of atrial septal defect, but resolution does not allow assessment for a patent foramen ovale. Mitral Valve * The mitral valve is grossly normal. * There is no mitral valve stenosis. * Significant mitral regurgitation is absent. Tricuspid Valve * The tricuspid valve is not well visualized, but is grossly normal. * There is mild tricuspid regurgitation. Aortic Valve * The aortic valve is tricuspid. The leaflet thickness if normal. There is no aortic stenosis, and no significant insufficiency. * The aortic valve opens well. * Aortic valve sclerosis mild, without significant aortic valvular stenosis. * No aortic regurgitation is present. Pulmonic Valve * The pulmonic valve is not well visualized. Great Vessels * The aortic root is normal size. * The pulmonary is not well visualized. Pericardium/Pleural * There is no pericardial effusion. Great Vessels * Normal inferior vena cava size and collapsability with sniff indicates a normal right atrial pressure of 3 mmHg CHEST ONE VIEW PORTABLE CLINICAL HISTORY: Chest pain. COMPARISON STUDY: Chest radiograph and chest CT July 09, 2015. FINDINGS: A right shoulder arthroplasty is partially imaged. There is no pneumothorax. Hazy left basilar opacity is unchanged and likely reflects atelectasis or epicardial fat pad. Cardiomediastinal silhouette is stable. There is no evidence of pulmonary edema. Scoliosis is again noted. IMPRESSION: No acute findings. No change in appearance of the chest. Electronically signed by: Chester Doyle M.D. 05/05/2016 7:55 AM Dictated Date/Time: 05/05/2016 7:54 AM -------- Last Resulted CBC 05/06/16 05:45 Red Blood Count 4.11, Mean Corpuscular Volume 89.5, Mean Corpuscular Hemoglobin 30.2, Mean Corpuscular Hemoglobin Concent 33.7, Mean Platelet Volume 10.6, Neutrophils (%) (Auto) 56.5, Lymphocytes (%) (Auto) 31.7, Monocytes (%) (Auto) 9.6, Eosinophils (%) (Auto) 1.5, Basophils (%) (Auto) 0.6, Neutrophils # (Auto) 4.04, Lymphocytes # (Auto) 2.27, Monocytes # (Auto) 0.69, Eosinophils # (Auto) 0.11, Basophils # (Auto) 0.04 Last Resulted BMP 05/06/16 05:45 troponins negative serially Consultations: cardiology Medication Reconciliation New Medications: Rivaroxaban (Xarelto) 15 Mg Tab 1 TAB PO DAILY, #30 TAB Metoprolol Succinate (Metoprolol Succinate ER) 50 Mg Tabcr 50 MG PO BID, #60 TAB Continued Medications: Acetaminophen (Tylenol) 500 Mg Tab 500 MG PO TID, TAB GIVE WITH ULTRAM. MAX 3GM APAP/24HRS Acetaminophen (Tylenol) 500 Mg Tab 500 MG PO Q4H PRN for Pain, TAB NEEDED, IN ADDITION TO ROUTINE TYLENOL. Amlodipine Besylate (Norvasc) 5 Mg Tab 10 MG PO DAILY, TAB Bisacodyl (Dulcolax) 10 Mg Sup 1 SUPP OR DAILY PRN for NO BOWEL MOVEMENT X 2 DAYS, SUP Calcium Carbonate-Vitamin D (Caltrate 600+D) 1 Chw Chw 1 TAB PO BID Docusate Sodium (Colace) 100 Mg Cap 100 MG PO BID PRN for Constipation, CAP Enteral Nutrition Formula (Ensure Plus Vanilla) 1 Can Liqd 1 CAN PO UD, CAN Lactulose (Chronulac) 10 Gm/15 Ml Syrp 30 ML PO DAILY PRN for NO BOWEL MOVEMENT X 1 DAY. Lisinopril (Lisinopril) 20 Mg Tab 20 MG PO BID Menthol (Topical Analgesic) (Bengay Ultra Strength) 5 % Pad 1 PATCH TD BID PRN for Pain Menthol-Methyl Salicylate (Gloria (Bengay Greaseless) 1 Cre Cre 1 APPLN TOP UD MAY APPLY TO SHOULDER/NECK NEEDED FOR PAIN Multiple Vitamins W/ Minerals (Therems M) 1 Tab Tab 1 TAB PO DAILY Pantoprazole (Protonix) 40 Mg Tab 40 MG PO QPM, #30 TAB at 4:30pm Tramadol HCl (Tramadol HCl) 50 Mg Tab 50 MG PO TID PRN for Pain Discontinued Medications: Metoprolol Succinate (Toprol Xl) 50 Mg Tab 50 MG PO HS, #30 TAB Discharge Exam Physical Exam: General Appearance: no apparent distress Eyes: EOMI ENT: hearing grossly normal Neck: trachea midline Respiratory/Chest: no respiratory distress, no accessory muscle use Cardiovascular: regular rate, rhythm Extremities: normal inspection 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 has been tolerating increase in metoprolol without hypotension or any significant bradycardia - continue at 50mg BID. [id number] at least 4 (higher if above echo interpreted as LV dysfunction) - either way shows clear risk/benefit favoring anticoagulation. had extensive discussions with pt, brief discussions with son (cardiology had extensive discussions with both) - and will initiate xarelto (15mg daily due to CrCl based on age/ creatinine) today walking without difficulty, HR controlled at rest and with activity - safe /stable for return to her home environment. f/u PCP next week Total Time Spent: Less than 30 minutes This includes examination of the patient, discharge planning, medication reconciliation, and communication with other providers. Discharge Instructions Please refer to the electronic Patient Visit Report (Discharge Instructions) for additional information. Additional Copies To Zechariah Wallace M.D.
[2016-05-06] MEDS ORDERED: NURSING VERBAL MED ORDER ONE (12:45)
== END 2016-05-06 13:48 | disposition home or self-care (01) | DRG 310 ==
LOC: ENRESERVTM → ENRESERVDT → CANRESERV → EDBD 00:22 → C.EDA 00:24 → C.2T 02:57
PROVIDERS: ADMIT Hospitalist; ATTEND Family Medicine
DX: I48.0 Paroxysmal atrial fibrillation (principal); R07.89 Other chest pain; I10 Essential (primary) hypertension; M81.0 Age-related osteoporosis without current pathological fracture; K21.9 Gastro-esophageal reflux disease without esophagitis; D89.9 Disorder involving the immune mechanism, unspecified; R00.2 Palpitations; I45.10 Unspecified right bundle-branch block; M19.90 Unspecified osteoarthritis, unspecified site; Z96.659 Presence of unspecified artificial knee joint; Z96.611 Presence of right artificial shoulder joint; Z86.010 Personal history of colon polyps; Z87.440 Personal history of urinary (tract) infections; Z82.49 Family history of ischemic heart disease and other diseases of the circulatory system; Z79.899 Other long term (current) drug therapy

== ENCOUNTER → 2016-05-11 | Outpatient (CLI) | payer OTHER ==
[~2016-05-11] MED LIST changes: +BISA10SU38 PR; +LACT10SO17 PO; -LIDO16CR TOP; -METO1TAB66 PO; -MULTCHW; +MULTTAB63 PO; +TPRSR50 PO; +XRL15 PO; +[UNRECOGNIZED DRUG - CODE] TD
--- NOTE | 2016-05-11 14:17 | MAMMOGRAPHY REPORT ---
BILATERAL DIGITAL SCREENING MAMMOGRAM WITH CAD: 05/11/2016 CLINICAL HISTORY: Routine screening. Patient has no complaints. TECHNIQUE: Current study was also evaluated with a Computer Aided Detection (CAD) system. Bilatera l CC and MLO views were obtained. Note that the mammograms of the left breast are somewhat suboptim al due to inability of the patient to adequately position for the exam. COMPARISON: Comparison is made to exams dated: 05/10/2015 mammogram, 05/06/2013 mammogram, 05/07/2014 mammogram - [facility], and 02/29/2012 mammogram - [facility]. BREAST COMPOSITION: There are scattered areas of fibroglandular density in both breasts. FINDINGS: No suspicious masses, calcifications, or areas of architectural distortion are noted in e ither breast. There has been no significant interval change compared to prior exams. Bilateral bree gn-appearing calcifications, predominantly vascular calcifications, are not significantly changed. IMPRESSION: ACR BI-RADS CATEGORY 2: BENIGN There is no mammographic evidence of malignancy. A 1 year screening mammogram is recommended. The p atient will receive written notification of the results. Approximately 10% of breast cancers are not detected with mammography. A negative mammographic repor t should not delay biopsy if a clinically suggestive mass is present. Roxanne Zendejas M.D. ah/:05/11/2016 10:43:44 Customer Retention Specialist: Quentin Fish RT(R)(M), [facility] letter sent: Normal 1/2 BI-RADS Code: ACR BI-RADS Category 2: Benign
== END | disposition home or self-care (01) ==
LOC: C.MAMM 09:32
PROVIDERS: ATTEND Internal Medicine Critical Care Medicine
DX: Z12.31 Encounter for screening mammogram for malignant neoplasm of breast (principal)

== ENCOUNTER → 2016-11-02 | Outpatient (CLI) | payer OTHER ==
--- NOTE | 2016-11-02 07:59 | DIAGNOSTIC IMAGING REPORT ---
CERVICAL SPINE W/O CLINICAL HISTORY: 81 years-old Female presenting with NECK PAIN. TECHNIQUE: Multidetector CT of the cervical spine was performed without the use of intravenous contrast. IV contrast: None. COMPARISON: 06/19/2015. CT DOSE: The estimated cumulative dose is 476.78 mGycm. FINDINGS: Sales Analytics Manager topogram: Total right shoulder arthroplasty noted. 7 mm of grade 2 anterolisthesis of C4 on C5. This is stable from prior exam and is accompanied by deformity of the bilateral C4 pedicles. Resultant mild osseous spinal canal narrowing at C4-5 and severe bilateral osseous neural foraminal narrowing. Vertebral body heights are essentially preserved. Intervertebral disc space loss at C4-5 and C6-7, where there are focal degenerative changes, including osteophytosis and uncovertebral hypertrophy. No significant osseous neural foraminal narrowing or spinal canal stenosis at the remaining levels. Degenerative changes at the atlantoaxial articulation. The right lateral mass of C1 is slightly offset laterally and posteriorly on the lateral mass of C2. This is also unchanged from prior. Slight offset at the left atlantooccipital articulation is new from prior. No widening of the atlantodental, basion dens interval, or basion axial interval. No associated fracture. Ossification of the ligamentum flavum noted, which does not significantly contribute to spinal canal narrowing. No prevertebral soft tissue swelling. IMPRESSION: 1. No acute osseous injury of the cervical spine. 2. Persistent significant anterolisthesis of C4 on C5 with resultant osseous spinal canal and neural foraminal narrowing at C4-5. 3. Focal degenerative changes at C4-5 and C6-7. Additional degenerative changes as above. Electronically signed by: Zechariah Escobar M.D. 11/02/2016 7:58 AM Dictated Date/Time: 11/02/2016 7:42 AM
== END | disposition home or self-care (01) ==
LOC: C.CTS 07:23
PROVIDERS: ATTEND Internal Medicine Critical Care Medicine
DX: M54.2 Cervicalgia (principal); M50.321 Other cervical disc degeneration at C4-C5 level; M50.323 Other cervical disc degeneration at C6-C7 level

== ENCOUNTER 2017-04-15 11:46 | Emergency (ER) | payer OTHER ==
[~2017-04-15] VITALS: Ht 137.2 cm; Wt 64.0 kg
[~2017-04-15 11:46] MED LIST changes: -LINICRE TOP; +LINICRE61 TOP
[2017-04-15 11:50] VITALS: TEMP 36.9; Ht 137.2 cm; Wt 64.0 kg
--- NOTE | 2017-04-15 12:43 | EMERGENCY ROOM VISIT NOTE ---
History Report prepared by Lebron: Matteo Anand Under the Supervision of: Dr. Lalo Johnson M.D. First contact with patient: 12:23 Chief Complaint: OTHER COMPLAINT Stated Complaint: DOC REFFERED FOR A BLOOD CLOT History of Present Illness The patient is an 82 year old female who presents to the Emergency Room for evaluation of an episodic blood clot in left leg VP DELIVERY. She notes she had an ultrasound at the [facility] in her room. She currently resides at the [facility], assisted living. She notes she was notified that her US showed a blood clot in the left leg and was advised to come to the ED. She notes swelling on the left leg. She notes chronic pain in left hip. She currently rates her pain a 2/10 in severity. She has a history of scoliosis, osteoporosis, pulmonary embolism, and atrial fibrillation. She is currently taking Xarelto and has been taking it for one year. She reports that in 2004 she had a 4mm clot in the right lung and a 2 mm clot in the left lung. Her packer sausage and wiener is Dr. Mtz at [place]. She denies any shortness of breath, leg pain, and abdominal pain. Source of History: patient Onset: VP DELIVERY Position: leg (left) Symptom Intensity: 2/10 Quality: other (swelling and clot in left leg) Timing: other (episodic ) Associated Symptoms: No SOB, No abdominal pain Note: She notes a blood clot in left leg and left leg swelling. She notes chronic left hip pain. She denies leg pain. Review of Systems All systems have been listed, reviewed, and are negative other than those previously mentioned. Please see Additional Medical History Sheet. Past Medical & Surgical Medical Problems: (1) Ambulatory dysfunction (2) Autoimmune deficiency (3) Benign hypertension (4) C. 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 Surgical Problems: (1) Hx of appendectomy Family History Hypertension No pertinent family history Social History Smoking Status: Never Smoker Smokeless Tobacco Use: No Alcohol Use: none Drug Use: none Marital Status: Housing Status: assisted Occupation Status: retired Current/Historical Medications Scheduled Acetaminophen (Tylenol), 500 MG PO TID Amlodipine Besylate (Norvasc), 10 MG PO DAILY Calcium Carbonate-Vitamin D (Caltrate 600+D), 1 TAB PO BID Enteral Nutrition Formula (Ensure Plus Vanilla), 1 CAN PO UD Lisinopril (Lisinopril), 20 MG PO BID Menthol-Methyl Salicylate (Gloria (Bengay Greaseless), 1 APPLN TOP UD Metoprolol Succinate (Metoprolol Succinate ER), 50 MG PO BID Multiple Vitamins W/ Minerals (Therems M), 1 TAB PO DAILY Pantoprazole (Protonix), 40 MG PO QPM Rivaroxaban (Xarelto), 1 TAB PO DAILY Scheduled PRN Acetaminophen (Tylenol), 500 MG PO Q4H PRN for Pain Bisacodyl (Dulcolax), 1 SUPP IA DAILY PRN for NO BOWEL MOVEMENT X 2 DAYS Docusate Sodium (Colace), 100 MG PO BID PRN for Constipation Lactulose (Chronulac), 30 ML PO DAILY PRN for NO BOWEL MOVEMENT X 1 DAY. Menthol (Topical Analgesic) (Bengay Ultra Strength), 1 PATCH TD BID PRN for Pain Oxycodone HCl (Oxycodone HCl), 5 MG PO Q4 PRN for Pain Tramadol HCl (Tramadol HCl), 50 MG PO TID PRN for Pain Allergies Coded Allergies: Sulfa Antibiotics (Verified Allergy, Mild, RASH, 04/15/17) Kiwi Extract (Verified Allergy, Unknown, HIVES, 04/15/17) Latex (Verified Allergy, Unknown, RASH, 04/15/17) Celecoxib (Verified Adverse Reaction, Mild, GI UPSET, 04/15/17) Rofecoxib (Verified Adverse Reaction, Mild, GI UPSET, 04/15/17) Alendronate (Verified Adverse Reaction, Unknown, GI UPSET, 04/15/17) Codeine (Verified Adverse Reaction, Unknown, GI UPSET, 04/15/17) Meperidine (Verified Adverse Reaction, Unknown, GI UPSET, 04/15/17) Morphine (Verified Adverse Reaction, Unknown, GI UPSET, 04/15/17) Physical Exam Vital Signs Date Time Temp Pulse Resp B/P (MAP) Pulse Ox O2 Delivery O2 Flow Rate FiO2 04/15/17 15:36 76 18 127/71 98 Room Air 04/15/17 11:50 36.9 88 20 160/84 95 Room Air Physical Exam GENERAL: Patient awake, alert, oriented x 3. Patient follows commands. Patient does not appear toxic. Patient is adequately hydrated and well- nourished. SKIN: No erythema, pallor, cyanosis or rash HEENT: Normal head, pupils equal, reactive to light and accommodation. LUNGS: Clear to auscultation. No wheezes, no rales, no rhonchi. HEART: Regular rate and rhythm. Grade 2/6 systolic murmur. No gallops. No rubs ABDOMEN: Soft, nontender. EXTREMITIES: No signs of trauma. 3+ pretibial edema to LLE. No calf or thigh tenderness. NEUROLOGIC: Cranial nerves II-XII within normal limits. No gross motor sensory function deficits. Medical Decision & Procedures ER Provider Diagnostic Interpretation: Radiology results as stated below per my review and radiologist interpretation: CHEST 2 VIEWS ROUTINE CLINICAL HISTORY: DVT COMPARISON STUDY: 05/05/2016 FINDINGS: There is a moderate thoracolumbar scoliosis. The heart is the upper limits of normal in size. There is bibasal atelectasis/scarring. There is no failure. There is no lobar consolidation. No pleural effusions are visualized. There are postsurgical changes of a right shoulder arthroplasty.[ IMPRESSION: No active disease in the chest. Electronically signed by: Baltazar Tenorio M.D. 04/15/2017 1:44 PM Dictated Date/Time: 04/15/2017 1:43 PM ULTRASOUND L VENOUS DOPP LOWER EXT UNILAT CLINICAL HISTORY: Left leg swelling COMPARISON STUDY: No previous studies for comparison. FINDINGS: Real-time and color flow Doppler imaging were performed. Flow was seen within the femoral, popliteal and calf veins with no intraluminal thrombus demonstrated. The saphenous vein is patent. IMPRESSION: No evidence of left lower extremity DVT. Electronically signed by: Baltazar Tenorio M.D. 04/15/2017 2:11 PM Dictated Date/Time: 04/15/2017 2:10 PM Laboratory Results 04/15/17 13:00 Red Blood Count 4.43, Mean Corpuscular Volume 90.5, Mean Corpuscular Hemoglobin 30.0, Mean Corpuscular Hemoglobin Concent 33.2, Mean Platelet Volume 9.9, Neutrophils (%) (Auto) 50.1, Lymphocytes (%) (Auto) 36.1, Monocytes (%) (Auto) 11.4, Eosinophils (%) (Auto) 1.6, Basophils (%) (Auto) 0.7, Neutrophils # (Auto ) 3.74, Lymphocytes # (Auto) 2.70, Monocytes # (Auto) 0.85, Eosinophils # (Auto ) 0.12, Basophils # (Auto) 0.05 04/15/17 13:00 Test 04/15/17 13:00 White Blood Count 7.47 K/uL (4.8-10.8) Red Blood Count 4.43 M/uL (4.2-5.4) Hemoglobin 13.3 g/dL (12.0-16.0) Hematocrit 40.1 % (37-47) Mean Corpuscular Volume 90.5 fL (80-100) Mean Corpuscular Hemoglobin 30.0 pg (25-34) Mean Corpuscular Hemoglobin Concent 33.2 g/dl (32-36) Platelet Count 195 K/uL (130-400) Mean Platelet Volume 9.9 fL (7.4-10.4) Neutrophils (%) (Auto) 50.1 % Lymphocytes (%) (Auto) 36.1 % Monocytes (%) (Auto) 11.4 % Eosinophils (%) (Auto) 1.6 % Basophils (%) (Auto) 0.7 % Neutrophils # (Auto) 3.74 K/uL (1.4-6.5) Lymphocytes # (Auto) 2.70 K/uL (1.2-3.4) Monocytes # (Auto) 0.85 K/uL (0.11-0.59) Eosinophils # (Auto) 0.12 K/uL (0-0.5) Basophils # (Auto) 0.05 K/uL (0-0.2) RDW Standard Deviation 43.5 fL (36.4-46.3) RDW Coefficient of Variation 13.2 % (11.5-14.5) Immature Granulocyte % (Auto) 0.1 % Immature Granulocyte # (Auto) 0.01 K/uL (0.00-0.02) Prothrombin Time 13.1 SECONDS (9.0-12.0) Prothromb Time International Ratio 1.3 (0.9-1.1) Activated Partial Thromboplast Time 36.9 SECONDS (21.0-31.0) Partial Thromboplastin Ratio 1.4 Anion Gap 7.0 mmol/L (3-11) Est Creatinine Clear Calc Drug Dose 32.4 ml/min Estimated GFR () 67.1 Estimated GFR (Non- 57.9 BUN/Creatinine Ratio 23.2 (10-20) Calcium Level 9.5 mg/dl (8.5-10.1) Total Bilirubin 0.5 mg/dl (0.2-1) Aspartate Amino Transf (AST/SGOT) 24 U/L (15-37) Alanine Aminotransferase (ALT/SGPT) 23 U/L (12-78) Alkaline Phosphatase 60 U/L (45-117) Total Protein 7.0 gm/dl (6.4-8.2) Albumin 3.8 gm/dl (3.4-5.0) Globulin 3.2 gm/dl (2.5-4.0) Albumin/Globulin Ratio 1.2 (0.9-2) Laboratory results as stated above per my review. ECG Indication: other (blood clot left leg) Rate (beats per minute): 70 Rhythm: normal sinus Findings: nonspecific-ST abn, RBBB ED Course 1227: Past medical records reviewed. The patient was evaluated in room C2. A complete history and physical examination was performed. 1303: I reassessed the patient at this time. I discussed the treatment plan with the patient. 1545: I reassessed the patient at this time. She is feeling better and resting comfortably. I discussed the results and treatment plan with the patient. I answered all pertaining questions that she had. She expressed understanding and verbalized agreement. The patient will be discharged home. Medical Decision Nurses notes reviewed. Medical history sheet reviewed. Differential diagnosis includes but is not limited to: DVT and PE. The patient arrived after being told that she may have a clot in left upper leg. The patient has chronic swelling of the left leg. The patient is currently on Xarelto. Repeat ultrasound of the leg does not reveal any clots. Chest x-ray and lab work were also evaluated. Please see above. The patient is asymptomatic other than her chronic swelling of that leg. At this point, I do not believe the patient requires any change in therapy. I've explained this to the patient and to her son. Medication Reconcilliation Current Medication List: was personally reviewed by me Blood Pressure Screening Patient's blood pressure: Elevated blood pressure Blood pressure disposition: Referred to PCP Impression Primary Impression: Swelling of left lower extremity Scribe Attestation The scribe's documentation has been prepared under my direction and personally reviewed by me in its entirety. I confirm that the note above accurately reflects all work, treatment, procedures, and medical decision making performed by me. Departure Information Dispostion Home / Self-Care Referrals Zechariah Wallace M.D. (PCP) Forms HOME CARE DOCUMENTATION FORM, IMPORTANT VISIT INFORMATION, WORK / SCHOOL INSTRUCTIONS Patient Instructions [facility] Additional Instructions Continue all of your current medications as prescribed. Follow-up with Dr. Wallace
[2017-04-15 13:15] LABS: BASO % 0.7 %; BASO ABS # 0.05 K/uL (0-0.2); COMPLETE YES; EOS % 1.6 %; HEMATOCRIT 40.1 % (37-47); IG% 0.1 %; LYMPH % 36.1 %; MEAN CELL VOLUME 90.5 fL (80-100); MEAN CORPUSCULAR HGB CONC 33.2 g/dl (32-36); MEAN PLATELET VOLUME 9.9 fL (7.4-10.4); MONO % 11.4 %; NEUT % 50.1 %; PLATELET COUNT 195 K/uL (130-400); RED BLOOD COUNT 4.43 M/uL (4.2-5.4); WHITE BLOOD COUNT 7.47 K/uL (4.8-10.8)
[2017-04-15 13:23] LABS: INR 1.3 (0.9-1.1); PARTIAL THROMBOPLASTIN RATIO 1.4; PROTHROMBIN TIME (PATIENT) 13.1 SECONDS (9.0-12.0)
[2017-04-15 13:24] LABS: BUN/CREATININE RATIO 23.2 (10-20); CALCIUM 9.5 mg/dl (8.5-10.1); CREATININE 0.91 mg/dl (0.60-1.20); POTASSIUM 4.4 mmol/L (3.5-5.1)
[2017-04-15 13:26] LABS: ALB/GLOB RATIO 1.2 (0.9-2)
--- NOTE | 2017-04-15 13:45 | DIAGNOSTIC IMAGING REPORT ---
CHEST 2 VIEWS ROUTINE CLINICAL HISTORY: DVT COMPARISON STUDY: 05/05/2016 FINDINGS: There is a moderate thoracolumbar scoliosis. The heart is the upper limits of normal in size. There is bibasal atelectasis/scarring. There is no failure. There is no lobar consolidation. No pleural effusions are visualized. There are postsurgical changes of a right shoulder arthroplasty.[ IMPRESSION: No active disease in the chest. Electronically signed by: Baltazar Tenorio M.D. 04/15/2017 1:44 PM Dictated Date/Time: 04/15/2017 1:43 PM
[2017-04-15] MEDS ORDERED: OXYC1TAB3 PO (14:04)
[2017-04-15] MEDS ORDERED: OXYC-609 PO (14:05)
--- NOTE | 2017-04-15 14:12 | DIAGNOSTIC IMAGING REPORT ---
ULTRASOUND L VENOUS DOPP LOWER EXT UNILAT CLINICAL HISTORY: Left leg swelling COMPARISON STUDY: No previous studies for comparison. FINDINGS: Real-time and color flow Doppler imaging were performed. Flow was seen within the femoral, popliteal and calf veins with no intraluminal thrombus demonstrated. The saphenous vein is patent. IMPRESSION: No evidence of left lower extremity DVT. Electronically signed by: Baltazar Tenorio M.D. 04/15/2017 2:11 PM Dictated Date/Time: 04/15/2017 2:10 PM
[2017-04-15 15:36] VITALS: BP 127/71; PULSE 76; O2SAT 98
== END 2017-04-15 16:00 | disposition home or self-care (01) ==
LOC: C.EDB 11:47 → C.EDC 16:00
DX: R60.0 Localized edema (principal); M25.552 Pain in left hip; G89.29 Other chronic pain; M41.9 Scoliosis, unspecified; M81.0 Age-related osteoporosis without current pathological fracture; I48.91 Unspecified atrial fibrillation; M35.9 Systemic involvement of connective tissue, unspecified; I10 Essential (primary) hypertension; M53.86 Other specified dorsopathies, lumbar region; M48.00 Spinal stenosis, site unspecified; Z86.711 Personal history of pulmonary embolism; Z79.01 Long term (current) use of anticoagulants; Z96.659 Presence of unspecified artificial knee joint; Z96.619 Presence of unspecified artificial shoulder joint

== ENCOUNTER → 2017-06-08 | Outpatient (CLI) | payer OTHER ==
[~2017-06-08] MED LIST changes: +OXYC-609 PO
--- NOTE | 2017-06-08 15:00 | MAMMOGRAPHY REPORT ---
BILATERAL DIGITAL SCREENING MAMMOGRAM TOMOSYNTHESIS WITH CAD: 06/08/2017 CLINICAL HISTORY: Routine screening. TECHNIQUE: Breast tomosynthesis in addition to standard 2D mammography was performed. Current study was also evaluated with a Computer Aided Detection (CAD) system. COMPARISON: Comparison is made to exams dated: 05/11/2016 mammogram, 05/10/2015 mammogram, 05/07/2014 m ammogram, 05/06/2013 mammogram - [facility], and 02/29/2012 mammogram - [facility]. BREAST COMPOSITION: There are scattered areas of fibroglandular density in both breasts. FINDINGS: No suspicious masses, calcifications, or areas of architectural distortion are noted in ei ther breast. There has been no significant interval change compared to prior exams. Note that the im ages are somewhat suboptimal as the patient could not tolerate proper positioning. IMPRESSION: ACR BI-RADS CATEGORY 1: NEGATIVE There is no mammographic evidence of malignancy. A 1 year screening mammogram is recommended. The pa tient will receive written notification of the results. Approximately 10% of breast cancers are not detected with mammography. A negative mammographic report should not delay biopsy if a clinically suggestive mass is present. Roxanne Zendejas M.D. ah/:06/08/2017 12:33:10 [place]: Quentin PENA)(M), [facility] letter sent: Normal 1/2 BI-RADS Code: ACR BI-RADS Category 1: Negative
== END | disposition home or self-care (01) ==
LOC: C.MAMM 11:42
PROVIDERS: ATTEND Internal Medicine Critical Care Medicine
DX: Z12.31 Encounter for screening mammogram for malignant neoplasm of breast (principal)